=== PATIENT | male | born 1995 | race Caucasian/White ===

== ENCOUNTER 2021-02-02 21:14 | Emergency (ER) | payer OTHER ==
[~2021-02-02] VITALS: Ht 182.9 cm; Wt 95.3 kg
[2021-02-02 21:25] VITALS: BP 132/68
--- NOTE | 2021-02-02 21:28 | NUR ---
TO LOBBY A/W BED AMBULATORY
[2021-02-02 22:19] LABS: BASOPHILS % (AUTO) 0.7 % (0.0-2.0); EOSINOPHILS # (AUTO) 0.1 K/uL (0-0.4); EOSINOPHILS % (AUTO) 2.1 % (0.0-4.0); HEMATOCRIT 45.9 % (36-52); HEMOGLOBIN 15.8 g/dL (12.0-18.0); LYMPHOCYTES # (AUTO) 2.2 K/uL (2.0-11.5); MEAN CORPUSCULAR HEMOGLOBIN 29 pg (27-31); MEAN CORPUSCULAR HGB CONC 34 g/dL (33-37); MEAN CORPUSCULAR VOLUME 85.4 fL (80-94); MONOCYTES # (AUTO) 0.5 K/uL (0.8-1.0); MONOCYTES % (AUTO) 6.6 % (1.7-9.3); NEUTROPHILS # (AUTO) 4.2 K/uL (1.8-7.7); NEUTROPHILS % (AUTO) 59.6 % (42.2-75.2); PLATELET COUNT (AUTO) 152 K/uL (140-450); RED BLOOD CELL COUNT(AUTO) 5.38 MIL/uL (4.20-6.10); RED CELL DISTRIBUTION WIDTH 13.1 % (11.6-13.7)
--- NOTE | 2021-02-02 22:45 | NUR ---
SEEN AND EXAMINED BY BOB
[2021-02-02 22:53] LABS: ALBUMIN 4.1 g/dL (3.4-5.0); ANION GAP 10.3 (8-16); CARBON DIOXIDE 30.7 mmol/L (21-32); TOTAL BILIRUBIN 0.6 mg/dL (0.0-1.0)
[2021-02-02] MEDS ORDERED: CIPR500T4 PO (23:40)
--- NOTE | 2021-02-02 23:48 | NUR ---
CALLED PT IN LOBBY AND OUTSIDE. NO ANSWER.
--- NOTE | 2021-02-02 23:52 | NUR ---
PT ELOPED PRIOR TO RECIEVING D/C PAPERS.
== END 2021-02-02 23:52 | disposition home or self-care (01) ==
LOC: MED 21:14
DX: K92.1 Melena (principal); R19.7 Diarrhea, unspecified; Z79.899 Other long term (current) drug therapy
CPT/HCPCS: 36415; 80053; 85025; 86900; 86901; 99283